=== PATIENT | female | born 1975 | race Caucasian/White ===

== ENCOUNTER 2016-11-26 14:58 | Inpatient (IN) | payer MEDICAID ==
--- NOTE | 2016-11-26 15:29 | History & Physical ---
History of Present Illness - Date of Service Date of Service for History & Physical: 11/26/16 - History of Present Illness Admitting Diagnosis: Intractable abdominal pain. Infectious colitis. rectal bleeding History of Present Illness: Patient is here for a follow up after discharge from the ER at [facility]. Wednesday night patient began to experience left sided abdominal pain she thought was due to constipation. She passed one hard bowel movement followed by diarrhea. This provided some relief but then the pain returned. She began to have several loose, bloody bowel movements. Was evaluated in the ER and told she has colitis and to follow up with her PCP. She continues to have flare ups of pain and bloody bowel movements reporting 4 stools today with little to no fecal matter, just blood. No recent travel or uncooked foods. Patient states she has had similar pain in the past but never bloody stools. Recommended patient go back to the ER. Patient was agreeable to this plan. Travel Screening - Travel/Exposure Within Last 30 Days Have you traveled within the last 30 days?: No Review of Systems Reviewed: No additional complaints except as noted below Constitutional: Reports: As per HPI. Denies: Chills, Fever, Malaise, Night sweats, Weakness, Weight change Eyes: Reports: As per HPI. Denies: Eye discharge, Eye pain, Photophobia, Vision change ENT: Reports: As per HPI. Denies: Congestion, Dental pain, Ear pain, Epistaxis , Hearing loss, Throat pain Respiratory: Reports: As per HPI. Denies: Cough, Dyspnea, Hemoptysis, Stridor, Wheezes Cardiovascular: Reports: As per HPI. Denies: Arrhythmia, Chest pain, Dyspnea on exertion, Edema, Murmurs, Orthopnea, Palpitations, Paroxysmal nocturnal dyspnea, Rheumatic Fever, Syncope Endocrine: Reports: As per HPI. Denies: Fatigue, Heat or cold intolerance, Polydipsia, Polyuria Gastrointestinal: Reports: As per HPI. Denies: Abdominal pain, Constipation, Diarrhea, Hematemesis, Hematochezia, Melena, Nausea, Vomiting Genitourinary: Reports: As per HPI. Denies: Abnormal menses, Discharge, Dyspareunia, Dysuria, Frequency, Hematuria, Incontinence, Retention, Urgency Musculoskeletal: Reports: As per HPI. Denies: Arthralgia, Back pain, Gout, Joint swelling, Myalgia, Neck pain Skin: Reports: As per HPI. Denies: Bruising, Change in color, Change in hair/ nails, Lesions, Pruritus, Rash Neurological: Reports: As per HPI. Denies: Abnormal gait, Confusion, Headache, Numbness, Paresthesias, Seizure, Tingling, Tremors, Vertigo, Weakness Psychiatric: Reports: As per HPI. Denies: Anxiety, Auditory hallucinations, Depression, Homicidal thoughts, Suicidal thoughts, Visual hallucinations Hematological/Lymphatic: Reports: As per HPI. Denies: Anemia, Blood Clots, Easy bleeding, Easy bruising, Swollen glands H&P Meds/Allergies - Allergies Allergies: Allergies Allergy/AdvReac Type Severity Reaction Status Date / Time duloxetine HCl Allergy Severe ALTERED Unverified 10/14/15 13:42 [From Cymbalta] MENTAL STATUS fluticasone propionate Allergy Severe SWELLING Unverified 10/14/15 13:42 [From Flonase] OF THE FACE tramadol HCl [From Ultram] Allergy Severe ITCHING Unverified 10/14/15 13:42 Penicillins Allergy Intermediate HIVES Unverified 10/14/15 13:42 - Home Medications Home Medications Medication Instructions Recorded Confirmed Last Taken Atorvastatin Calcium [Lipitor] 40 mg PO DAILY 12/21/14 11/26/16 06/17/15 Acetaminophen [Tylenol Es] 1,000 mg PO TID 02/26/15 11/26/16 06/18/15 Ibuprofen [Motrin] 800 mg PO Q6H PRN 02/26/15 11/26/16 06/18/15 - Active Medications Active Medications: Current Medications Hydromorphone HCl (Dilaudid) 2 mg IV Q4H PRN PRN Reason: Pain - General Sodium Chloride () 1,000 mls @ 125 mls/hr IV .Q8H PRN PRN Reason: LARGE VOLUME IV Levofloxacin/Dextrose 500 mg/ (Glucose) 100 mls @ 125 mls/hr IVPB Q24H SHIN Stop: 12/01/16 15:31 Metronidazole/Sodium Chloride (500 mg/ Sodium Chloride) 100 mls @ 100 mls/hr IVPB Q8H SHIN Stop: 12/01/16 15:31 Ondansetron HCl (Zofran) 4 mg IVP Q4H PRN PRN Reason: NAUSEA Physical Exam - General General Appearance: Alert, Moderate distress - Head Head exam: Normal inspection Head exam detail: negative: Abrasion, Contusion - ENT ENT exam: Normal exam, Mucous membranes moist, Normal external ear exam, Normal orophraynx, TM's normal bilaterally - Respiratory Respiratory exam: Normal lung sounds bilaterally. negative: Respiratory distress - Cardiovascular Cardiovascular Exam: Regular rate, Normal rhythm, Normal heart sounds - GI/Abdominal GI/Abdominal exam: Soft, Hyperactive bowel sounds, Tenderness (LUQ and LLQ). negative: Distended, Mass - Rectal Rectal exam: Deferred - exam: Deferred - Extremities Extremities exam: Normal inspection, Full ROM, Normal capillary refill. negative: Tenderness - Neurological Neurological exam: Normal gait - Psychiatric Psychiatric exam: Anxious, Normal affect - Skin Skin exam: Dry, Intact, Normal color, Warm Results - Labs Result Diagrams: 11/26/16 15:39 11/26/16 15:39 - Imaging and Cardiology CT scan - abdomen Status: Report reviewed (infectious colitis- done at [facility]) VTE H&P Assessment - Risk for VTE Risk for VTE: Yes Risk Level: Very Low Risk Assessment Date: 11/26/16 Risk Assessment Time: 15:24 VTE Orders Placed or Will Be Placed: Yes Plan - Inpatient Certification Inpatient Certification: Admit to inpatient care: Based on my medical assessment, after consideration of patient's risk factors (age, co-morbidities and patient presenting symptoms and acuity), I expect that this patient will remain in the hospital greater than or equal to two midnights and that the services needed warrant inpatient care because: Patient Risk Factors: [infectious colitis, intractable abdominal pain] Estimated length of stay: [24-48 hrs] The patient may reasonably be expected to be discharged or transferred to a hospital within 96 hours after admission to [facility]. Services needed: [IV antibiotics, GI consult, IV fluids, pain management] Post hospital care (if known): [] I certify that my determination is in accordance with my understanding of Medicare requirements for reasonable and necessary inpatient services. 11/26/16 15:25 - Detailed Diagnosis and Plan (1) Infectious colitis Current Visit: Yes Status: Acute Base Code: A09 - INFECTIOUS GASTROENTERITIS AND COLITIS, UNSPECIFIED Comment: 11/26/16- goal is pain management, decreased stooling and control of blood loss IV fluids IV antibiotics- Levaquin 500mg IV Q 24 hrs and Flagyl 500mg q 8 hrs stool for polys, c-diff, stool x 3 for occult CBC/CMP/amylase/lipase now Continue home meds (2) Intractable abdominal pain Current Visit: Yes Status: Acute Base Code: R10.9 - UNSPECIFIED ABDOMINAL PAIN Comment: 11/26/16- Goal is for pain management and decreased stooling. Will continue home Tylenol and add IV Dilaudid 2mg q 4 hrs PRN (3) DVT prophylaxis Current Visit: Yes Status: Acute Base Code: [id number] - Comment: 11/26/16- low VTE risk, will not initiate oral/injectable prophylaxis due to active blood stools (4) Full code status Current Visit: Yes Status: Acute Base Code: Z78.9 - OTHER SPECIFIED HEALTH STATUS
[2016-11-26] MEDS ORDERED: LEVOFLOXACIN 500MG IVPB 500 MG in DEXTROSE 1 BAG IVPB SCH (15:30)
[2016-11-26 15:44] LABS: BASO % 0.1 % (0-6); EOS % 1.1 % (0-6); GRAN % 67.3 % (47-80); HEMATOCRIT 37.4 % (35.0-47.0); HEMOGLOBIN 12.4 gm/dl (11.6-16.0); LYMPH % 25.4 % (16-45); MEAN CELL VOLUME 93.5 fl (81-97); MEAN CORPUSCULAR HGB CONC 33.2 g/dl (32-36); MEAN PLATELET VOLUME 10.8 fl (7.4-10.4); MONO % 6.1 % (0-9); PLATELET COUNT 214 K/uL (130-400); RED CELL DISTRIBUTION WIDTH 13.1 % (11.5-14.5); WHITE BLOOD COUNT W/O DIFF 12.7 K/uL (4.2-12.2)
[2016-11-26 15:55] LABS: ALB/GLOB RATIO 1.2 (1.1-1.8); ALBUMIN 3.6 gm/dL (3.5-5.0); ALKALINE PHOSPHATASE 70 U/L (38-126); ALT/SGPT 34 U/L (9-52); AMYLASE 67 U/L (30-110); ANION GAP 11.3 (7-16); AST/SGOT 22 U/L (14-36); BILIRUBIN,TOTAL 0.25 mg/dL (0.2-1.3); BLOOD UREA NITROGEN 9 mg/dL (7-17); CARBON DIOXIDE 24.7 mmol/L (22-30); CREATININE 0.7 mg/dL (0.52-1.04); EST GLOMERULAR FILTRATION RATE > 60 ml/min; GLUCOSE,RANDOM 108 mg/dL (70-110); LIPASE 110 U/L (23-300); TOTAL PROTEIN 6.5 gm/dL (6.3-8.2)
[2016-11-26] MEDS: HYDROMORPHONE HCL 2 MG/ML VIAL IV PRN ×2 (16:15→20:03)
[2016-11-26] MEDS: 0.9 % SODIUM CHLORIDE 1000ML 1,000 ML IV PRN ×2 (16:27→23:48)
[2016-11-26] MEDS: ACETAMINOPHEN 500 MG TABLET PO SCH (16:29)
[2016-11-26] MEDS: NICOTINE 21 MG/24 HOUR PATCH TD SCH (16:32)
[2016-11-26] MEDS: PREGABALIN 50 MG CAPSULE PO SCH ×2 (16:33→21:07)
[2016-11-26] MEDS: ONDANSETRON HCL IV 4 MG/2 ML VIAL IVP PRN (17:39)
[2016-11-26] MEDS: METRONIDAZOLE IVPB 500 MG in SODIUM CHLORIDE 1 BAG IVPB SCH ×2 (17:39→23:47)
[2016-11-26 17:41] LABS: STOOL FOR POLYS MANY WBC'S OBSERVED
[2016-11-27] MEDS: ACETAMINOPHEN 500 MG TABLET PO SCH ×2 (01:01→12:07)
[2016-11-27] MEDS: HYDROMORPHONE HCL 2 MG/ML VIAL IV PRN ×2 (05:47→09:14)
[2016-11-27 06:37] LABS: BASO % 0.1 % (0-6); EOS % 1.2 % (0-6); GRAN % 66.6 % (47-80); HEMATOCRIT 37.2 % (35.0-47.0); HEMOGLOBIN 12.3 gm/dl (11.6-16.0); LYMPH % 24.2 % (16-45); MEAN CELL VOLUME 93.9 fl (81-97); MEAN CORPUSCULAR HEMOGLOBIN 31.1 pg (27-33); MEAN CORPUSCULAR HGB CONC 33.1 g/dl (32-36); MEAN PLATELET VOLUME 10.7 fl (7.4-10.4); MONO % 7.9 % (0-9); PLATELET COUNT 210 K/uL (130-400); RED BLOOD COUNT 3.96 M/uL (3.80-5.40); RED CELL DISTRIBUTION WIDTH 12.9 % (11.5-14.5); WHITE BLOOD COUNT W/O DIFF 9.5 K/uL (4.2-12.2)
[2016-11-27 06:50] LABS: ANION GAP 9.3 (7-16); BLOOD UREA NITROGEN 6 mg/dL (7-17); CARBON DIOXIDE 23.7 mmol/L (22-30); CREATININE 0.7 mg/dL (0.52-1.04); EST GLOMERULAR FILTRATION RATE > 60 ml/min; GLUCOSE,RANDOM 91 mg/dL (70-110)
[2016-11-27] MEDS: METRONIDAZOLE IVPB 500 MG in SODIUM CHLORIDE 1 BAG IVPB SCH (09:17)
[2016-11-27] MEDS: NICOTINE 21 MG/24 HOUR PATCH TD SCH (09:21)
[2016-11-27] MEDS: PREGABALIN 50 MG CAPSULE PO SCH (09:22)
[2016-11-27] MEDS ORDERED: ATORVASTATIN 20 MG TABLET PO SCH (10:00)
[2016-11-27] MEDS ORDERED: LORATADINE 10 MG TABLET PO SCH (10:00)
[2016-11-27] MEDS ORDERED: [UNRECOGNIZED DRUG - OTHER] PO SCH (10:00)
[2016-11-27] MEDS ORDERED: LISINOPRIL 10 MG TABLET PO SCH (10:00)
[2016-11-27] MEDS: ONDANSETRON HCL IV 4 MG/2 ML VIAL IVP PRN (11:26)
[2016-11-27] MEDS ORDERED: HYDROCODONE/APAP 10/325 TABLET PO PRN (12:20)
--- NOTE | 2016-11-27 13:28 | Discharge Summary ---
Providers Discharge Summary Date: 11/27/16 Date of admission: 11/26/16 14:58 Expected Date of Discharge: 11/27/16 Attending physician: LENA MEJIA Primary care physician: LENA MEJIA Physical Exam - Vital Signs Vital Signs: Vital Signs - Last 24 Hrs Temp Pulse Resp BP BP Pulse Ox 11/27/16 08:00 98.6 F 84 16 121/58 97 11/27/16 00:00 98.5 F 74 16 123/69 98 11/26/16 20:41 22 11/26/16 15:54 17 11/26/16 15:09 98.1 F 88 14 110/73 97 - General General Appearance: Alert, Oriented x3, Cooperative, No acute distress - Head Head exam: Normal inspection Head exam detail: negative: Abrasion, Contusion - ENT ENT exam: Normal exam, Mucous membranes moist, Normal external ear exam, Normal orophraynx, TM's normal bilaterally - Respiratory Respiratory exam: Normal lung sounds bilaterally. negative: Respiratory distress - Cardiovascular Cardiovascular Exam: Regular rate, Normal rhythm, Normal heart sounds - GI/Abdominal GI/Abdominal exam: Soft. negative: Distended, Mass - Rectal Rectal exam: Deferred - exam: Deferred - Extremities Extremities exam: Normal inspection, Full ROM, Normal capillary refill. negative: Tenderness - Neurological Neurological exam: Normal gait - Psychiatric Psychiatric exam: Anxious, Normal affect - Skin Skin exam: Dry, Intact, Normal color, Warm Hospitalization - Hospitalization Admission Diagnosis: Intractable abdominal pain. Infectious colitis. rectal bleeding - Problem List/Discharge Diagnosis (1) Infectious colitis Current Visit: Yes Status: Acute Base Code: A09 - INFECTIOUS GASTROENTERITIS AND COLITIS, UNSPECIFIED Comment: 11/27/16- pain well managed and feeling much better IV antibiotics- Levaquin 500mg IV Q 24 hrs and Flagyl 500mg q 8 hrs for 24hrs. Has cipro and flagyl at home from ER already for 10 days. WBC normalized, VS stable. Will have patient finish oral medications previously prescribed. Continue home meds See outpatient for followup in next few weeks (2) Intractable abdominal pain Current Visit: Yes Status: Resolved Base Code: R10.9 - UNSPECIFIED ABDOMINAL PAIN Comment: 11/26/16- Goal is for pain management and decreased stooling. Will send norco 10 TID PRN for pain for next two weeks (3) Full code status Current Visit: Yes Status: Acute Base Code: Z78.9 - OTHER SPECIFIED HEALTH STATUS (4) DVT prophylaxis Current Visit: Yes Status: Acute Base Code: [id number] - Comment: 11/26/16- low VTE risk, will not initiate oral/injectable prophylaxis due to active blood stools - Hospitalization Course Disposition: Home, Self-Care Abnormal Labs: Abnormal Lab Results 11/26/16 11/27/16 11/27/16 Range/Units 15:39 06:30 06:30 WBC 12.7 H (4.2-12.2) K/uL MPV 10.8 H 10.7 H (7.4-10.4) fl BUN 6 L (7-17) mg/dL Calcium 8.1 L (8.5-10.1) mg/dL Condition at Discharge: (2) Stable Discharge Diagnosis: 1) infectious colitis Discharge Medications - Discharge Medications Prescriptions: Hydrocodone/Acetaminophen [[place] 10mg/325mg] 1 tab PO Q8H PRN #30 tab PRN Reason: Pain - General Home Medications: Ambulatory Orders Atorvastatin Calcium [Lipitor] 40 mg PO DAILY 12/21/14 [Last Taken 06/17/15] Acetaminophen [Tylenol 500Mg Tab] 1,000 mg PO TID 02/26/15 [Last Taken 06/18/15] Ibuprofen [Motrin] 800 mg PO Q6H PRN 02/26/15 [Last Taken 06/18/15] Hydrocodone/Acetaminophen [[place] 10mg/325mg] 1 tab PO Q8H PRN #30 tab 11/27/16 [ Last Taken Unknown] Discharge Plan - Discharge Instructions Activity at Discharge: Increase Activity as Tolerated Diet at Discharge: Advance to Usual Diet
== END 2016-11-27 15:20 | disposition home or self-care (01) | DRG 392 ==
LOC: MEDSURG 14:58
PROVIDERS: ADMIT Family Medicine; ATTEND Family Medicine
DX: A09 Infectious gastroenteritis and colitis, unspecified (principal); R10.9 Unspecified abdominal pain; Z78.9 Other specified health status
CPT/HCPCS: 80048; 80053; 82150; 83690; 85025; 87493; 89055; 99223; 99239; J1956; J2405

== ENCOUNTER 2016-12-02 19:05 | Emergency (ER) | payer MEDICAID ==
[2016-12-02] MEDS ORDERED: 0.9 % SODIUM CHLORIDE 1,000 ML BAG IV ONE ×2 (19:28→19:39)
[2016-12-02] MEDS ORDERED: ONDANSETRON HCL IV 4 MG/2 ML VIAL IV ONE (19:39)
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
[2016-12-02 19:41] LABS: URINE APPEARANCE CLEAR; URINE BILIRUBIN NEGATIVE (NEGATIVE); URINE BLOOD NEGATIVE (NEGATIVE); URINE COLOR YELLOW; URINE GLUCOSE (UA) NEGATIVE (NEGATIVE); URINE KETONE NEGATIVE (NEGATIVE); URINE LEUKOCYTE ESTERASE NEGATIVE (NEGATIVE); URINE NITRITE NEGATIVE (NEGATIVE); URINE PROTEIN NEGATIVE (NEGATIVE); URINE UROBILINOGEN 0.2 E.U./dL (0.20 - 1.00)
[2016-12-02 19:54] LABS: BASO % 0.2 % (0-6); EOS % 1.1 % (0-6); GRAN % 64.3 % (47-80); HEMOGLOBIN 14.1 gm/dl (11.6-16.0); LYMPH % 26.1 % (16-45); MEAN CELL VOLUME 92.3 fl (81-97); MEAN CORPUSCULAR HGB CONC 33.6 g/dl (32-36); MEAN PLATELET VOLUME 10.8 fl (7.4-10.4); MONO % 8.3 % (0-9); PLATELET COUNT 304 K/uL (130-400); RED BLOOD COUNT 4.55 M/uL (3.80-5.40); WHITE BLOOD COUNT W/O DIFF 12.1 K/uL (4.2-12.2)
[2016-12-02 20:05] LABS: ALB/GLOB RATIO 1.2 (1.1-1.8); ALKALINE PHOSPHATASE 74 U/L (38-126); ALT/SGPT 43 U/L (9-52); ANION GAP 11.5 (7-16); AST/SGOT 38 U/L (14-36); BLOOD UREA NITROGEN 13 mg/dL (7-17); CARBON DIOXIDE 25.5 mmol/L (22-30); CREATININE 0.8 mg/dL (0.52-1.04); EST GLOMERULAR FILTRATION RATE > 60 ml/min; GLUCOSE,RANDOM 92 mg/dL (70-110); LIPASE 116 U/L (23-300); TOTAL PROTEIN 7.3 gm/dL (6.3-8.2)
[2016-12-02] MEDS ORDERED: HEPARIN SODIUM 1000 UNIT/1 ML 10ML VIAL IVP ONE (22:43)
[2016-12-02] MEDS ORDERED: HEPARIN SODIUM/D5W 25,000 UNITS in DEXTROSE 5 % IN WATER 1 BAG IV SCH ×2 (22:45)
[2016-12-02 23:07] LABS: INR 1.09; PARTIAL THROMBOPLASTIN TIME 31.6 SECONDS (24.5-39.1); PROTHROMBIN TIME (PATIENT) 12.3 SECONDS (9.5-12.1)
== END 2016-12-02 23:40 | disposition short-term general hospital (02) ==
LOC: ER 19:05
DX: I81 Portal vein thrombosis (principal); R10.32 Left lower quadrant pain; R06.02 Shortness of breath; R11.0 Nausea; I10 Essential (primary) hypertension; F17.210 Nicotine dependence, cigarettes, uncomplicated
CPT/HCPCS: 99285 ×2; 96365; 96375; 83690; 85025; 85730; 85610; 80053; 81003; 81025; 74177; Q9967; J2405; J7030